=== PATIENT | male | born 1970 | race Caucasian/White ===

== ENCOUNTER 2016-11-12 14:52 | Emergency (ER) | payer BC | END 2016-11-12 16:10 | disposition home or self-care (01) | LOC: ER 14:52 | DX: S61.222A Laceration with foreign body of right middle finger without damage to nail, initial encounter (principal); W31.89XA Contact with other specified machinery, initial encounter; Y92.69 Other specified industrial and construction area as the place of occurrence of the external cause; Y99.0 Civilian activity done for income or pay ==